=== PATIENT | male | born 1970 | race African-American/Black ===

== ENCOUNTER 2019-02-15 21:29 | Emergency (ER) | payer OTHER, SELFPAY ==
[2019-02-15] MEDS ORDERED: Ketorolac Tromethamine 60 MG/2 ML VIAL ONE (22:09)
== END 2019-02-15 22:48 | disposition home or self-care (01) ==
LOC: ERS 21:29
DX: S39.012A Strain of muscle, fascia and tendon of lower back, initial encounter (principal); V49.9XXA Car occupant (driver) (passenger) injured in unspecified traffic accident, initial encounter
CPT/HCPCS: 96372; 99283; J1885

== ENCOUNTER 2025-02-16 11:10 | Outpatient (CLI) | payer OTHER | END 2025-02-16 11:11 | disposition home or self-care (01) | LOC: BICRAD 11:10 | PROVIDERS: ATTEND Student in an Organized Health Care Education/Training Program | DX: M13.0 Polyarthritis, unspecified (principal); M47.816 Spondylosis without myelopathy or radiculopathy, lumbar region; M51.369 Other intervertebral disc degeneration, lumbar region without mention of lumbar back pain or lower extremity pain | CPT/HCPCS: 72100 ==